=== PATIENT | male | born 1980 | race Caucasian/White ===

== ENCOUNTER 2022-05-13 14:32 | Emergency (ER) | payer MEDICAID, SELFPAY ==
[2022-05-13] VITALS (11 sets, daily range): BP systolic 141–155; BP diastolic 69–101; PULSE 94–113; RESP 20; TEMP 36.4; O2SAT 89–97; BMI 37.0
--- NOTE | 2022-05-13 15:06 | CRLHL7_ITS ---
For Patients: As a result of the Century Cures Act, medical imaging exams and procedure reports are released immediately into your electronic medical record. You may view this report before your referring provider. If you have questions, please contact your health care provider. HISTORY: Shortness of breath. COMPARISON: None available FINDINGS: A portable erect AP view of the chest was obtained at 15 17 hours. The lungs are clear. No focal or diffuse infiltrates are present. The heart is normal in size. The mediastinum is normal in appearance. The osseous structures are normal in appearance for the patient`s age. IMPRESSION: Normal portable chest single view. Dictated by Didier Earl MD @ 05/13/2022 3:41:11 PM (Electronically Signed)
--- NOTE | 2022-05-13 15:08 | ED_ITS ---
HPI - General Adult General Time Seen by Provider: 15:08 Date Seen: 05/13/22 Chief complaint: Shortness of Breath/Dyspnea Stated complaint: low O2, shortness of breath Time Seen by Provider: 05/13/22 15:00 Source: patient Mode of arrival: ambulatory Limitations: no limitations History of Present Illness HPI narrative: Patient is a pleasant 41 white male smoker who has a history of asthma that is been longstanding has not really been bothered for the last 20 years or so but over the last year he has had more flares of asthma specially with colds or other allergens. 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 He has worked with his primary and he has been on albuterol inhaler as well as fluconazole also takes losartan and chlorthalidone. He has had no leg swelling no immobilization. This symptoms started over the last 3 days when he had upper respiratory type symptoms and congestion nasal running and that seems little better today but his breathing has worsened last night his breathing was worse he has been wheezing. And has had a cough nonproductive Related Data Home Medications Medication Instructions Recorded Confirmed albuterol sulfate 90 mcg/actuation 1 puff inhalation Q4H PRN 05/13/22 05/13/22 aerosol inhaler (Ventolin HFA) fluticasone propionate 110 2 inh inhalation DAILY 05/13/22 05/13/22 mcg/actuation HFA aerosol inhaler (Flovent HFA) losartan 100 mg tablet 100 mg PO DAILY 05/13/22 05/13/22 Previous Rx's Medication Instructions Recorded chlorthalidone 25 mg tablet 25 mg PO QDAY #90 tabs 03/02/22 prednisone 20 mg tablet 20 mg PO BID #10 tabs 05/13/22 Allergies Allergy/AdvReac Type Severity Reaction Status Date / Time naproxen [From Aleve] Allergy Verified 05/13/22 14:45 Review of Systems Status of ROS: Reports: 6 or more systems reviewed and unremarkable except as noted in History and below FORMERLY [facility], [facility] PFS Social History Smoking Status: Current every day smoker What tobacco products do you use: cigarettes Smoking packs per day: 0.25 Smoking cigarettes per day: 5.0 Do you use any of these nicotine containing products: None Second hand tobacco smoke exposure: No How often do you have a drink containing alcohol: 2-4 times a month How many standard drinks containing alcohol do you have on a typical day: 1 or 2 AUDIT-C Alcohol total score: 2 Non-prescribed substance use: denies use Exam Narrative: Exam Narrative: Objective: Vital signs show elevated blood pressure pulse elevated 113 respiratory rate 20 and unlabored temp temp is 97.5? O2 sat is 89% on room air Triple swab is sent HEENT is unremarkable Neck is supple Chest is audible wheezing and auscultate of wheezing in the mid to low lung lisa, no rales Heart rhythm regular heart murmur Extremities are no edema neurologic nonfocal good peripheral perfusion noted Const: Vital Signs, click to edit/add: Vital Signs - 24 hr 05/13/22 14:41 05/13/22 15:25 05/13/22 14:48 Temperature 97.5 F L Pulse Rate 105 H Pulse Rate [Pulse Oximeter] 113 H Respiratory Rate 20 Blood Pressure Blood Pressure [Le ft Upper Arm] 150/101 H Pulse Oximetry 89 97 96 Oxygen Delivery Me thod Room Air Nasal Cannula Oxygen Flow Rate 2 05/13/22 15:00 05/13/22 15:02 05/13/22 15:30 Temperature Pulse Rate 99 103 H 101 H Pulse Rate [Pulse Oximeter] Respiratory Rate Blood Pressure 141/80 H Blood Pressure [Le ft Upper Arm] Pulse Oximetry 96 95 96 Oxygen Delivery Me thod Oxygen Flow Rate 05/13/22 15:31 05/13/22 14:48 05/13/22 16:02 Temperature Pulse Rate 102 H 97 Pulse Rate [Pulse Oximeter] Respiratory Rate Blood Pressure 155/70 H 143/69 H Blood Pressure [Le ft Upper Arm] Pulse Oximetry 96 92 93 Oxygen Delivery Me thod Nasal Cannula Oxygen Flow Rate 2 Course Vital Signs Vital signs: Initial Vital Signs Temperature 97.5 F L 05/13/22 14:41 Temperature Source Temporal Artery Scan 05/13/22 14:41 Pulse Rate 113 H 05/13/22 14:41 Respiratory Rate 20 05/13/22 14:41 Blood Pressure 150/101 H 05/13/22 14:41 Blood Pressure Mean 117 05/13/22 14:41 Pulse Oximetry 89 05/13/22 14:41 Oxygen Delivery Method 05/13/22 14:41 Vital Signs Temperature 97.5 F L 05/13/22 14:41 Pulse Rate 113 H 05/13/22 14:41 Respiratory Rate 20 05/13/22 14:41 Blood Pressure 150/101 H 05/13/22 14:41 Pulse Oximetry 89 05/13/22 14:41 Oxygen Delivery Method 05/13/22 14:41 Temperature 97.5 F L 05/13/22 14:41 Pulse Rate 97 05/13/22 16:02 Respiratory Rate 20 05/13/22 14:41 Blood Pressure 143/69 H 05/13/22 16:02 Pulse Oximetry 93 05/13/22 16:02 Oxygen Delivery Method 05/13/22 14:48 Oxygen Flow Rate 2 05/13/22 14:48 Medical Decision Making MDM Narrative Medical decision making narrative: 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 He has a recent upper respiratory infection now has an asthma flare-up. He has no swelling or edema, no history of clear clotting or bleeding. He will get a now be drawl and Atrovent neb here, RT has assessed him already. He will get a L of IV fluid, IV Solu-Medrol 125. Will check a heme 4 and a basic 7 and chest x-ray. Disposition pending his clinical response and lab findings. Suspicion is for an upper respiratory infection stimulating a upper respiratory infection. Strongly recommend to quit smoking as well Addendum: Patient has slightly low potassium given potassium bicarb dose 25 milk over limits. His chest x-ray looks unremarkable, he feels better, he is able to maintain his O2 sat without oxygen now after the neb. He got IV Solu- Medrol. I think could be appropriate to give him prednisone 20 mg b.i.d. x5 days, he will continue his albuterol inhaler. Engage in a high potassium diet. Recheck with primary care in the next 2 days certainly sooner return to ED problems or concerns. Strongly recommend discontinue smoking Lab Data Labs: Lab Results 05/13/22 05/13/22 05/13/22 Range/Units 14:45 15:20 15:20 WBC 12.58 H (4.50-11.00) K/uL RBC 5.29 (4.30-5.90) m/uL Hgb 15.9 (13.5-17.5) gm/dL Hct 46.1 (37.0-53.0) % MCV 87 (80-100) fL MCH 30 (26-34) pg MCHC 35 (32-36) gm/dL RDW Coeff of Nida 13.0 (11.5-15.5) % Plt Count 234 (140-440) K/uL Neut % (Auto) 70.2 (42.0-72.0) % Lymph % (Auto) 17.3 L (20-44) % [place] % (Auto) 7.1 (0.0-11.0) % Eos % (Auto) 4.0 (0.0-7.0) % Baso % (Auto) 0.5 (0.0-3.0) % Neut # (Auto) 8.80 H (1.7-7.0) K/uL Lymph # (Auto) 2.20 (0.90-2.90) K/uL [place] # (Auto) 0.90 (0.00-0.90) K/UL Eos # (Auto) 0.50 (0.00-0.50) K/uL Baso # (Auto) 0.10 (0.00-0.30) K/uL Sodium 138 (135-149) mmol/L Potassium 3.0 L (3.6-5.1) mmol/L Chloride 99 (96-114) mmol/L Carbon Dioxide 33 H (20-32) mmol/L BUN 12 (5-24) mg/dL Creatinine 0.7 (0.5-1.5) mg/dL Estimated Creat Clear 146.42 Estimated GFR 118 ml/min Glucose 148 H (60-115) mg/dL Calcium 9.3 (8.4-10.6) mg/dL C-Reactive Protein 2.8 H (0.5-1.0) mg/dL SARS-CoV-2 (PCR) Negative SARS-CoV-2 (Negative) Influenza Type A (PCR) Negative PCR FLU A (Negative) Influenza Type B (PCR) Negative PCR FLU B (Negative) RSV (PCR) Negative PCR RSV (Negative) Discharge Plan Discharge Clinical Impression: Acute upper respiratory infection, Asthma with acute exacerbation Patient Disposition: Home w/ Parent or Adult Condition: Improved Instructions: Hypokalemia (ED) Additional Instructions: Rest, stick with light activity, eat lots of high potassium foods such as fruits vegetables green leafy vegetables (see handout on other potassium-rich foods). Follow-up with primary care in the next couple of days, continue albuterol inhaler as needed and steroid inhaler. Take Prednisone 20 mg twice a day for 5 days. Push fluids to stay well hydrated, we recommend to stop smoking. Activity Level: Light activity Discharge Diet: Regular Prescriptions: New prednisone 20 mg tablet 20 mg PO BID Qty: 10 0RF No Action albuterol sulfate [Ventolin HFA] 90 mcg/actuation HFA aerosol inhaler 1 puff inhalation Q4H PRN fluticasone propionate [Flovent HFA] 110 mcg/actuation HFA aerosol inhaler 2 inh inhalation DAILY losartan 100 mg tablet 100 mg PO DAILY chlorthalidone 25 mg tablet 25 mg PO QDAY Qty: 90 0RF Follow Up/Referrals: Oniel Branch MD [Primary Care Provider] - Stand Alone Forms: [employer] Info Instructions
[2022-05-13] MEDS: IPRAT-ALBUT 0.5-2.5 MG/3 ML NEB 1 NEB IH (15:10)
[2022-05-13] MEDS: METHYLPREDNISOLONE SOD SUCC 62.5 MG/ML (125) 125 MG IVP (15:30)
[2022-05-13] MEDS: 0.9 % SODIUM CHLORIDE 1000 ml 1,000 ML IV (15:30)
[2022-05-13 15:38] LABS: Basophils Percent Auto 0.5 % (0.0-3.0); Hematocrit 46.1 % (37.0-53.0); Hemoglobin* 15.9 gm/dL (13.5-17.5); Immature Granulocytes Pct Auto 0.9 %; Lymphocytes Percent Auto 17.3 % (20-44); Mean Corpuscular HGB Conc 35 gm/dL (32-36); Mean Corpuscular Hemoglobin 30 pg (26-34); Mean Corpuscular Volume 87 fL (80-100); Monocytes Percent Auto 7.1 % (0.0-11.0); Neutrophils Percent Auto 70.2 % (42.0-72.0); Platelet Count* 234 K/uL (140-440); Red Blood Count 5.29 m/uL (4.30-5.90); White Blood Count* 12.58 K/uL (4.50-11.00)
[2022-05-13 15:45] LABS: Slide Review Reflex No
[2022-05-13 15:55] LABS: Chloride* 99 mmol/L (96-114); Sodium* 138 mmol/L (135-149)
[2022-05-13 15:57] LABS: PCR FLU A Negative PCR FLU A (Negative); PCR FLU B Negative PCR FLU B (Negative); PCR RSV Negative PCR RSV (Negative)
[2022-05-13 15:58] LABS: SARS PCR* Negative SARS-CoV-2 (Negative)
[2022-05-13 15:58] LABS: Blood Urea Nitrogen* 12 mg/dL (5-24); Carbon Dioxide* 33 mmol/L (20-32); Creatinine* 0.7 mg/dL (0.5-1.5); Est. Creatinine Clearance* 146.42; Estimated Glomerular Filt Rate 118 ml/min
[2022-05-13 15:59] LABS: Calcium* 9.3 mg/dL (8.4-10.6); Glucose* 148 mg/dL (60-115)
[2022-05-13 16:01] LABS: C Reactive Protein* 2.8 mg/dL (0.5-1.0)
[2022-05-13] MEDS: POTASSIUM BICARB 25 MEQ EFFERVESCENT TAB PO (16:21)
--- NOTE | 2022-05-13 16:39 | ED.NURSE ---
Pt tolerated Potassium well. VSS on RA. Sats 93-97% on RA for >45 minutes prior to discharge.
== END 2022-05-13 16:38 | disposition home or self-care (01) ==
PROVIDERS: Emergency Provider Family Medicine; PCP Family Medicine
DX: J45.901 Unspecified asthma with (acute) exacerbation (principal); J06.9 Acute upper respiratory infection, unspecified
CPT/HCPCS: 36415; 71045; 80048; 85025; 86140; 87502; 87634; 87635; 94640; 94761; 96374; 99284; A9270; J2930; J7030

== ENCOUNTER 2022-10-24 09:42 | Outpatient (CLI) | payer MEDICAID, SELFPAY ==
--- NOTE | 2022-10-24 09:45 | CRLHL7_ITS ---
For Patients: As a result of the Century Cures Act, medical imaging exams and procedure reports are released immediately into your electronic medical record. You may view this report before your referring provider. If you have questions, please contact your health care provider. INDICATION: Palpable area left mandibular area. TECHNIQUE: Directed soft tissue ultrasound of the left kyra mandibular soft tissues without a radiologist present. FINDINGS: There is a hypoechoic slightly lobulated 2.6 x 1.5 x 2.0 cm fairly well defined mass without increased blood flow either within or just adjacent to the left parotid gland. The appearance is entirely nonspecific. A primary intra parotid neoplasm is suspect. A lymph node is considered unlikely given the lack of blood flow. This does not appear to reflect a normal lymph node. CT may be helpful for further characterization. IMPRESSION: 2.6 x 1.5 x 2.0 cm hypoechoic slightly lobulated mass likely within or perhaps just adjacent to the left parotid gland. Further imaging evaluation should be based on clinical grounds. CT may be helpful. Dictated by Dominic Peck MD @ 10/26/2022 10:44:39 AM (Electronically Signed)
== END 2022-10-24 09:43 | disposition home or self-care (01) ==
LOC: US 09:43
PROVIDERS: PCP Family Medicine; Visit Provider Otolaryngology
DX: R22.0 Localized swelling, mass and lump, head (principal)
CPT/HCPCS: 76536

== ENCOUNTER 2022-11-08 14:47 | Outpatient (CLI) | payer MEDICAID, SELFPAY ==
--- NOTE | 2022-11-08 15:00 | CRLHL7_ITS ---
For Patients: As a result of the Century Cures Act, medical imaging exams and procedure reports are released immediately into your electronic medical record. You may view this report before your referring provider. If you have questions, please contact your health care provider. INDICATION: Swelling, palpable abnormality. TECHNIQUE: CT of the neck from the skull base to the thoracic inlet following administration of 133 cc iodinated intravenous contrast. COMPARISON: Correlated with ultrasound dated 10/24/2022. FINDINGS: A focal ulceration is noted over the cutaneous and subcutaneous tissues of the left posterior upper cheek (series 4, image 38). A focus of nodular enhancement with internal cystic/necrotic change is noted within the inferior superficial left parotid gland and measures approximately 2.0 x 2.0 x 2.4 cm (series 6, image 8). Inferior to this, within the same facundo drainage pathway, prominent left IIa lymph nodes measure up to 11 millimeters (series 6, image 9) and 14 millimeters (series 6, image 16) with internal hyperdensity suggestive of necrosis. Mildly prominent left level III lymph nodes measure up to 11 millimeters (series 3, image 48) and 9 millimeters (series 3, image 50). A cluster of mildly prominent left medial supraclavicular lymph node is also noted (series 3, image 71). Normal appearance of the aerodigestive structures. Specifically, no mass or abnormal mucusal-based enhancement. Normal submandibular glands. Unremarkable thyroid gland. The lung apices are clear. No suspicious osseous lesion is identified. IMPRESSION: 1. Focal ulceration involving the cutaneous and subcutaneous soft tissues of the posterior left upper cheek (series 4, image 38) just anterior to and below the level of the temporomandibular joint. 2. Nodular enhancing 2.4 cm lesion in the superficial left parotid with cystic/necrotic changes likely representing a grossly enlarged lymph node. 3. Prominent left level IIa, level III, and medial supraclavicular nodes, including a centrally necrotic left level IIa node. 4. While a primary infectious etiology or parotid lesion remains in the differential diagnosis, given distribution and presence of cystic adenopathy, the possibility of cutaneous squamous carcinoma with regional lymphatic spread should be excluded. Findings were discussed with Dr. Lopez on 11/08/22. Please note that all CT scans at this facility use dose modulation, iterative reconstruction, and/or weight-based dosing when appropriate to reduce radiation dose to as low as reasonably achievable. Dictated by Josh Kaufman MD @ 11/08/2022 5:11:37 PM (Electronically Signed)
== END 2022-11-08 14:48 | disposition home or self-care (01) ==
LOC: CT 14:47
PROVIDERS: PCP Family Medicine; Visit Provider Otolaryngology
DX: K11.8 Other diseases of salivary glands (principal); L98.499 Non-pressure chronic ulcer of skin of other sites with unspecified severity; R59.0 Localized enlarged lymph nodes
CPT/HCPCS: 70491; Q9967

== ENCOUNTER 2022-11-23 11:13 | Outpatient (CLI) | payer MEDICAID, SELFPAY ==
--- NOTE | 2022-11-23 11:15 | CRLHL7_ITS ---
For Patients: As a result of the Century Cures Act, medical imaging exams and procedure reports are released immediately into your electronic medical record. You may view this report before your referring provider. If you have questions, please contact your health care provider. ULTRASOUND-GUIDED CORE NEEDLE BIOPSY OF LEFT PAROTID MASS. CLINICAL HISTORY: Left parotid mass. COMPARISON STUDIES: CT 11/08/2022, ultrasound 10/24/2022 TECHNIQUE: Real-time ultrasound with image documentation was used for targeting the left parotid lesion. Core biopsy specimens were obtained using a Written device with a 14-gauge biopsy needle. CONSENT and TIME OUT: The procedure, risks, and alternatives were explained to the patient and a consent was signed. Julian Protocol was followed including pre-procedure verification that relevant information/documentation was available, reviewed and properly matched to the patient; consent accurate and complete; and equipment and supplies available. Time Out was conducted just prior to starting procedure to verify the four required elements: patient identity, correct side/site marked (if applicable), procedure, relevant images/results properly labeled and displayed (if applicable). PROCEDURE: The patient was positioned supine on the ultrasound table. The left cheek was prepped with ChloraPrep. 6 cc of 1 percent lidocaine was used for local anesthesia. Core samples were obtained. The specimens were placed in 10% formalin and sent to the pathology department. Pressure was held on the biopsy site until all bleeding subsided. LATERALITY: Left parotid gland LESION: Solid hypoechoic intra parotid mass measuring 2.6 x 0.6 x 2.2 cm SUSPICION FOR MALIGNANCY: Medium NUMBER OF SAMPLES: 5 IMPRESSION: Ultrasound-guided left parotid gland biopsy. Dictated by Kwame Lehman MD @ 11/23/2022 12:38:59 PM (Electronically Signed)
== END 2022-11-23 11:14 | disposition home or self-care (01) ==
LOC: US 11:14
PROVIDERS: PCP Family Medicine; Visit Provider Otolaryngology
DX: R59.9 Enlarged lymph nodes, unspecified (principal)
CPT/HCPCS: 38505; 76942; 88307; A4649

== ENCOUNTER 2023-11-23 08:41 | Outpatient (CLI) | payer OTHER, SELFPAY ==
--- OUTSIDE RECORDS SUMMARY | 2023-11-25 04:02 | XMS_ITS ---
Author Organization [facility] Address [address] [place] [address] Care Team Providers Care Fire Supervisor Name Role Phone Unavailable Unavailable Unavailable Surgery Details Not on file Complications Check Surgery Details section. Procedure Estimated Blood Loss Check Surgery Details section. Procedure Findings Check Surgery Details section. Procedure Specimens Taken Check Surgery Details section.
--- OUTSIDE RECORDS SUMMARY | 2023-11-25 04:02 | XMS_ITS | Referral Summary ---
Author Organization [facility] Address [address] [place] [id number] Care Team Providers Care Manager Completions Name Role Phone Unavailable Primary Care Provider Unavailabl e Source Comments Patient records contain information from all sites at [facility]. For routine questions regarding patient records, call [phone] during business hours, M-F 8:00 AM - 5:00 PM Central Time. Record requests for emergency care only can be directed to [phone] at any time.[facility] Allergies Active Allergy Reactions Criticality Noted Date Comments Albuterol Nausea Only Low 01/02/2008 Only in large doses and when nebulized. TOLERATES inhaler form of albuterol and uses frequently. Amlodipine Edema High 10/19/2022 Naproxen Hives (Reselect Reaction) High 01/02/2008 Has TOLERATED ibuprofen Medications Medication Sig Dispensed Refills Start Date End Date Status chlorthalidone (HYGROTON) 25 mg tablet Take 25 mg by mouth daily. 07/25/2022 Active losartan (COZAAR) 100 mg tablet Take 100 mg by mouth daily. 12/03/2022 Active albuterol 90 mcg/actuation inhaler Inhale 2 puffs every 6 (six) hours as needed for shortness of breath or wheezing. 09/14/2022 Active fluticasone propionate (FLOVENT HFA) 110 mcg/actuation inhaler Inhale 1 puff 2 (two) times a day. 07/25/2022 Active oxyCODONE (ROXICODONE) 5 mg immediate release tabletIndications:Ac [facility] [employer] [place] Pain Exception Take 1 tablet (5 mg total) by mouth every 4 (four) hours as needed for pain Indication: Acute Pain Exception. 5 tablet 12/11/2022 Active Active Problems Problem Noted Date Diagnosed Date Hypertension Essential Primary 12/11/2022 Obstructive Sleep Apnea Adult 12/11/2022 Asthma NOS 12/11/2022 Alcohol Mild Use Disorder (Abuse) Uncomplicated 12/11/2022 Other Diseases Of Salivary Glands 11/29/2022 Social History Tobacco Use Types Packs/Day Years Used Date Smoking Tobacco: Every Day Cigarettes Smokeless Tobacco: Current Chew Tobacco Cessation:Ready to Q uit: Not Asked; Counseling Given: Not Answered Comments:Down to 1 cigarette/day, working on quitting Alcohol Use Standard Drinks/Week Comments Yes 15 (1 standard drink = 0.6 oz pu re alcohol) Overall Financial Resource Strain (CARDIA) Answe r Date Recorded How hard is it for you to pa y for the very basics like food, housing, medical care, and heating? Not very hard 12/27/2022 Exercise Vital Sign Answer Date Recorde d On average, how many days pe r week do you engage in moderate to strenuous exercise (like a brisk walk)? 1 day 12/27/2022 On average, how many minutes do you engage in exercise at this level? 30 min 12/27/2022 Hunger Vital Sign Answer Date Recorded Within the past 12 months, y ou worried that your food would run out before you got the money to buy more. Never true 12/28/19 Within the past 12 months, t he food you bought just didn't last and you didn't have money to get more. Never true 12/27/2022 PRAPARE - Transportation Answer Date Re corded In the past 12 months, has l ack of transportation kept you from medical appointments or from getting medications? No 12/04 In the past 12 months, has l ack of transportation kept you from meetings, work, or from getting things needed for daily living? No 12/27/2022 Nutrition Answer Date Recorded Nutrition: EVOO Fat Source Unknown 12/27 On average, how many serving s of fruits and vegetables do you eat per day (serving size is equal to 1 cup or approximately the size of a tennis ball)? 3-5 12/27/2022 Dental Answer Date Recorded Dental: Regular Dentist No 12/28/19 Employment Answer Date Recorded Employment status Employed and actively working without restrictions 12/27/2022 Housing Stability Answer Date Recorded What is your living situation today? I have a [employer] place to live 12/27/2022 Sex and Gender Information Value Date Recorded Sex Assigned at Male 12/27/2022 3:42 PM CDT Gender Identity Male 12/27/2022 3:42 PM CDT Sexual Orientation Straight 12/27/2022 3: 42 PM CDT Job Start Date Occupation Industry Not on file Not on file Not on file Last Filed Vital Signs Vital Sign Reading Time Taken Comments Blood Pressure 95/58 12/11/2022 4:45 PM CDT Pulse 101 12/11/2022 5:35 PM CDT Temperature 37 ??C (98.6 ??F) 12/11/2022 5:35 PM CDT Respiratory Rate 17 12/11/2022 4:50 PM CDT Oxygen Saturation 94% 12/11/2022 5:35 PM CDT Inhaled Oxygen Concentration - - Weight 123 kg (270 lb 15.1 oz) 12/11/2022 11:05 AM CDT Height 180.3 cm (5' 11) 12/11/2022 11:05 AM CDT Body Mass Index 37.79 12/11/2022 11:05 AM CDT Plan of Treatment Not on file Medical Devices Implanted Type Area Punchboard Assembler Device Identifier Shelf Expiration Date Model / Serial / Lot Clp Apr Lgs Intnl 9.0 - [id number] Implanted:Qty: 1 on 12/11/2022 by Annette Ashley M.D. at [facility] Hardware e.g. pins/screws/ rods Left: Neck Ethicon [id number] / / Procedures Procedure Name Priority Date/Time Associated Diagnosis Comments BASIC METABOLIC PANEL, S/P Routine 11/29/2022 5:26 PM CDT Other Diseases Of Salivary Glands Preoperative Exam from Last 3 Months or Most Recently Relevant to Health Maintenance Results * (ABNORMAL) Basic Metabolic Panel (11/29/2022 5:26 PM CDT) Potassium, S 3.4(L) 3.6 - 5.2 mmol/L 11/29/2022 6:59 PM CDT DTL Sodium, S 135 135 - 145 mmol/L 11/29/2022 6:59 PM CDT DTL Chloride, S 94(L) 98 - 107 mmol/L 11/29/2022 6:59 PM CDT DTL Bicarbonate, S 25 22 - 29 mmol/L 11/29/2022 6:59 PM CDT DTL Anion Gap 16(H) 7 - 15 11/29/2022 6:59 PM CDT DTL BUN (Blood Urea Nitrogen), S 12 8 - 24 mg/dL 11/29/2022 6:59 PM CDT DTL Creatinine 0.77 0.74 - 1.35 mg/dL 11/29/2022 6:59 PM CDT DTL Estimated GFR (eGFR) >90 >=60 mL/min/BSA 11/29/2022 6:59 PM CDT DTL Comment: Estimated GFR calculated using the 2020 CKD_EPI creatinine equation. Calcium, Total, S 9.7 8.6 - 10.0 mg/dL 11/29/2022 6:59 PM CDT DTL Glucose, S 289(H) 70 - 140 mg/dL 11/29/2022 7:19 PM CDT DTL Blood (Blood, Venous) 11/29/2022 5:26 PM CDT 11/29/2022 6:44 PM CDT Annette Ashley M.D. LAB BLOOD ADD-ON [facility] [place] [address] [place] [address], [facility] [address] [place] [address] from Last 3 Months or Most Recently Relevant to Health Maintenance
--- OUTSIDE RECORDS SUMMARY | 2023-11-25 04:02 | XMS_ITS | Clinical Summary ---
Author Organization [facility] Address [address] [place] [address] Care Team Providers Care Sql Architect Name Role Phone Unavailable Primary Care Provider Unavailabl e Source Comments Patient records contain information from all sites at [facility]. For routine questions regarding patient records, call [phone] during business hours, M-F 8:00 AM - 5:00 PM Central Time. Record requests for emergency care only can be directed to [phone] at any time.[facility] Allergies Active Allergy Reactions Criticality Noted [...] oxyCODONE (ROXICODONE) 5 mg immediate release tabletIndications:Ac [place] Pain Exception Take 1 tablet (5 mg [...] your living situation today? I have a [facility] place to live 12/27/2022 Sex and Gender [...] 12/11/2022 11:05 AM CDT Plan of Treatment Health Maintenance Due Date Last Done Comments HIV Screening 1979 Hepatitis C Screening 1979 Lipid (Cholesterol) Screening 1979 Office Visit for Blood Pressure Check / Re-check 1979 Tobacco Cessation counseling 1979 Hepatitis B Vaccines (1 of 3 - 19+ 3-dose series) 10/31/1998 Asthma Action Plan 12/11/2022 Asthma Control Test Questionnaire 12/11/2022 Asthma Management/Exacerbati on Questionnaire (AMQ/AEQ) 12/11/2022 Depression Screening (Annual PHQ-2) 03/05/2023 Pneumococcal vaccine (0-64 years) (2 of 2 - PCV) 07/26/2023 07/25/2022 COVID-19 Vaccine (4 - 2023-2 5 season) 2023 02/24/2021, 06/11/2020, 05/19/2020 Creatinine Level (Kidney Function Test) 11/30/2023 11/29/2022 Potassium Level 11/30/2023 11/29/2022 Sodium Level 11/30/2023 11/29/2022 Influenza Vaccine (#1) 2023 , 03/12/2019, 12/26/2017 DTaP,Tdap,and Td Vaccines (2 - Td or Tdap) 06/05/2027 06/04/2017 HPV Vaccines Aged Out No longer eligi ble based on patient's age to complete this topic Medical Devices Implanted Type Area Hot Packer Device Identifier Shelf Expiration Date Model / Serial / Lot Clp [facility] - [id number] Implanted:Qty: 1 on 12/11/2022 by Annette Ashley M.D. at [facility] Hardware e.g. pins/screws/ rods Left: [...] CDT Annette Ashley M.D. LAB BLOOD ADD-ON [facility] [address] [place] [address], [facility] [address] [place] [address] from Last 3 Months or Most Recently Relevant to Health Maintenance
--- OUTSIDE RECORDS SUMMARY | 2023-11-25 04:02 | XMS_ITS | Clinical Summary ---
Author Organization [facility] Address [place], [place] [address] Care Team Providers Care Neon Sign Erector Name Role Phone None, Primary Care Provider Unavailabl e Allergies Active Allergy Reactions Criticality Noted Date Comments Albuterol Nausea Only 01/02/2008 Only in large doses Naproxen Hives 01/02/2008 Medications Medication Sig Dispensed Refills Start Date End Date Status HYDROcodone-acetamino phen, 5-500 mg, (VICODIN) Tab tablet 1 tablet 3 times daily if needed for Pain. 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 AHI-45 08/07/2012 Obesity, unspecified 01/02/2008 Immunizations Name Administration Dates Next Due Td (Age >=7 Years) 12/03/2005 Family History Medical History Relation Name Comments Hyperlipidemia Father Hypertension Father Cancer-breast Mother Good Health Sister 2 Relation Name Status Comments Father Alive Mother Alive Sister 1 Alive Sister 2 Social History Tobacco Use Types Packs/Day Years Used Date Smoking Tobacco: Every Day Cigarettes 0.5 10 Tobacco Cessation:Ready to Q uit: No; Counseling Given: Yes Comments:<.5 pack per day Alcohol Use Standard Drinks/Week Comments Yes 0 (1 standard drink = 0.6 oz pur e alcohol) 2 drinks a week Sex and Gender Information Value Date Recorded Sex Assigned at Not on file Gender Identity Not on file Sexual Orientation Not on file Obstetrics History Last Filed Vital Signs Vital Sign Reading Time Taken Comments Blood Pressure 146/83 12/03/2012 5:24 PM CDT Pulse 62 12/03/2012 5:24 PM CDT Temperature - - Respiratory Rate - - Oxygen Saturation - - Inhaled Oxygen Concentration - - Weight 107.5 kg (237 lb) 12/03/2012 5:24 PM CDT Height 178.4 cm (5' 10.25) 01/02/2008 1:40 PM C DT Body Mass Index 33.76 01/02/2008 1:40 PM CDT Plan of Treatment Health Maintenance Due Date Last Done Comments Tdap 10/31/1990 Depression screening for age 12+ 1991 HIV for age 15-65 10/31/1994 BMI (ht and wt on same day) for age 18+ 10/31/1997 Hepatitis C screening for ag e 18-79 10/31/1997 Lipids for age 35-44 10/31/2014 Tetanus booster 12/04/2015 12/03/2005 COVID-19 vaccine series (2022- season) 2023 Influenza for age 9-49 11/04/2023 Pneumococcal series for age 6-64 Aged Out No longer eligible based on patient's age to complete this topic Care Teams Neon Sign Erector Relationship Specialty Start Date End Date None, Dr Feliz PCP - General 12/30/05
== END 2023-11-23 08:42 | disposition home or self-care (01) ==
LOC: NFLDREF 11-25 04:01
PROVIDERS: PCP Family Medicine; Referring Provider Family Medicine; Visit Provider Family Medicine
DX: E78.5 Hyperlipidemia, unspecified (principal); I10 Essential (primary) hypertension
CPT/HCPCS: 80053; 80061

== ENCOUNTER 2023-11-28 09:20 | Outpatient (CLI) | payer OTHER, SELFPAY ==
--- OUTSIDE RECORDS SUMMARY | 2023-12-02 06:05 | XMS_ITS | Clinical Summary ---
Author Organization [facility] Address [place], [place] [address] Care Team Providers Care Muck Farmer Name Role Phone None, Primary Care Provider [...] Tetanus booster 12/04/2015 12/03/2005 COVID-19 vaccine series (2023- season) 2023 Influenza for age 9-49 11/04/2023 Pneumococcal series for age 6-64 Aged Out No longer eligible based on patient's age to complete this topic Care Teams Muck Farmer Relationship Specialty Start Date End Date None, Dr Feliz PCP - General 12/30/05
--- OUTSIDE RECORDS SUMMARY | 2023-12-02 06:05 | XMS_ITS ---
Author Organization [facility] Address [address] [place] [address] Care Team Providers Care Merchandise Collector Name Role Phone Unavailable Unavailable Unavailable Surgery Details Not on file Complications Check Surgery Details section. Procedure Estimated Blood Loss Check Surgery Details section. Procedure Findings Check Surgery Details section. Procedure Specimens Taken Check Surgery Details section.
--- OUTSIDE RECORDS SUMMARY | 2023-12-02 06:05 | XMS_ITS | Referral Summary ---
Author Organization [facility] Address [address] [place] [id number] Care Team Providers Care Concrete Buster Operator Name Role Phone Unavailable Primary Care Provider Unavailabl e Source Comments Patient records contain information from all sites at [facility]. For routine questions regarding patient records, call [phone] during business hours, M-F 8:00 AM - 5:00 PM Central Time. Record requests for emergency care only can be directed to [phone] at any time.[facility] Allergies Active Allergy Reactions Criticality Noted Date [...] oxyCODONE (ROXICODONE) 5 mg immediate release tabletIndications:Ac [place] Pain Exception Take 1 tablet (5 mg [...] your living situation today? I have a [facility] place to live 12/27/2022 Sex and [...] on file Medical Devices Implanted Type Area Dermatology Teacher Device Identifier Shelf Expiration Date Model / Serial / Lot Clp Apr Lgs Intnl 9.0 - [id number] Implanted:Qty: 1 on 12/11/2022 by Annette Ashley M.D. at [facility] Hardware e.g. pins/screws/ rods Left: Neck Ethicon [...] CDT Annette Ashley M.D. LAB BLOOD ADD-ON [facility] [address] [place] [address], [facility] [address] [place] [address] from Last 3 Months or Most Recently Relevant to Health Maintenance
--- OUTSIDE RECORDS SUMMARY | 2023-12-02 06:05 | XMS_ITS | Clinical Summary ---
Author Organization [facility] Address [address] [place] [address] Care Team Providers Care Emergency Room Clinician Name Role Phone Unavailable Primary Care Provider Unavailabl e Source Comments Patient records contain information from all sites at [facility]. For routine questions regarding patient records, call [phone] during business hours, M-F 8:00 AM - 5:00 PM Central Time. Record requests for emergency care only can be directed to [phone] at any time.[facility] Allergies Active Allergy Reactions Criticality [...] oxyCODONE (ROXICODONE) 5 mg immediate release tabletIndications:Ac [place] Pain Exception Take 1 tablet (5 mg [...] your living situation today? I have a [facility] place to live 12/27/2022 Sex and [...] this topic Medical Devices Implanted Type Area Window Decorator Device Identifier Shelf Expiration Date Model / Serial / Lot Clp [facility] - [id number] Implanted:Qty: 1 on 12/11/2022 by Annette Ashley M.D. at [facility] Hardware e.g. pins/screws/ rods Left: Neck [...] CDT Annette Ashley M.D. LAB BLOOD ADD-ON [facility] [address] [place] [address], [facility] [address] [place] [address] from Last 3 Months or Most Recently Relevant to Health Maintenance
== END 2023-11-28 09:21 | disposition home or self-care (01) ==
LOC: NFLDREF 12-02 06:03
PROVIDERS: PCP Family Medicine; Referring Provider Family Medicine; Visit Provider Family Medicine
DX: E87.6 Hypokalemia (principal); R73.01 Impaired fasting glucose
CPT/HCPCS: 82947; 84132

== ENCOUNTER 2024-03-14 08:05 | Outpatient (CLI) | payer BC, SELFPAY | END 2024-03-14 08:06 | disposition home or self-care (01) | LOC: NFLDREF 03-22 16:44 | PROVIDERS: PCP Family Medicine; Referring Provider Family Medicine; Visit Provider Family Medicine | DX: E11.9 Type 2 diabetes mellitus without complications (principal); E87.6 Hypokalemia; E78.5 Hyperlipidemia, unspecified | CPT/HCPCS: 80053; 80061 ==

== ENCOUNTER 2024-06-16 11:31 | Outpatient (CLI) | payer BC, SELFPAY | END 2024-06-16 11:32 | disposition home or self-care (01) | LOC: NFLDREF 06-19 05:31 | PROVIDERS: PCP Family Medicine; Referring Provider Family Medicine; Visit Provider Family Medicine | DX: E87.6 Hypokalemia (principal); E11.65 Type 2 diabetes mellitus with hyperglycemia; R79.89 Other specified abnormal findings of blood chemistry; Z79.84 Long term (current) use of oral hypoglycemic drugs | CPT/HCPCS: 80048; 84450; 84460 ==

== ENCOUNTER 2024-12-19 08:15 | Outpatient (CLI) | payer BC, SELFPAY | END 2024-12-19 08:16 | disposition home or self-care (01) | LOC: NFLDREF 12-25 12:24 | PROVIDERS: PCP Family Medicine; Referring Provider Family Medicine; Visit Provider Family Medicine | DX: E78.5 Hyperlipidemia, unspecified (principal); E11.9 Type 2 diabetes mellitus without complications | CPT/HCPCS: 80053; 82043; 82570 ==

== ENCOUNTER 2025-01-19 07:31 | Outpatient (CLI) | payer BC, SELFPAY ==
--- NOTE | 2025-01-19 09:27 | P.ANES_ITS ---
Anesthesia Charges Start Date/Time Anesthesia Start Date: 01/19/25 Anesthesia Start Time: 08:28 Stop Date/Time Anesthesia Stop Date: 01/19/25 Anesthesia Stop Time: 09:25 Coding CPT Codes CPT Codes: FLASH LWR INTST NDSC NOS - 87056 ([id number]) P2 - PATIENT W/MILD SYST DISEASE, QK - FRAME COVERER 2-4 CNCRNT ANES PROC, QX - RUSSIAN LANGUAGE PROFESSOR SVC W/ MD MED DIRECTION
--- NOTE | 2025-01-19 09:27 | W.ANESCHARGE ---
Anesthesia Charges Start Date/Time Anesthesia Start Date: 01/19/25 Anesthesia Start Time: 08:28 Stop Date/Time Anesthesia Stop Date: 01/19/25 Anesthesia Stop Time: 09:25 Coding CPT Codes CPT Codes: FLASH LWR INTST NDSC NOS - 30216 ([id number]) P2 - PATIENT W/MILD SYST DISEASE, QK - INVESTMENT ADVISOR 2-4 CNCRNT ANES PROC, QX - MASTER TAX ADVISOR SVC W/ MD MED DIRECTION
--- NOTE | 2025-01-19 13:02 | P.ANES_ITS ---
Anesthesia Charges Start Date/Time Anesthesia Start Date: 01/19/25 Anesthesia Start Time: 08:28 Stop Date/Time Anesthesia Stop Date: 01/19/25 Anesthesia Stop Time: 09:25 Coding CPT Codes CPT Codes: ANES LWR INTST NDSC NOS - 37291 ([id number]) QX - CORPORATE BOND TRADER SVC W/ MD MED DIRECTION, QK - TRANSPORT AIDE 2-4 CNCRNT ANES PROC, P2 - PATIENT W/MILD SYST DISEASE
--- NOTE | 2025-01-19 13:02 | W.ANESCHARGE ---
Anesthesia Charges Start Date/Time Anesthesia Start Date: 01/19/25 Anesthesia Start Time: 08:28 Stop Date/Time Anesthesia Stop Date: 01/19/25 Anesthesia Stop Time: 09:25 Coding CPT Codes CPT Codes: ANES LWR INTST NDSC NOS - 85616 ([id number]) QX - ENVIRONMENTAL ENGINEERING INTERN SVC W/ MD MED DIRECTION, QK - OCCUPATIONAL REHABILITATION AIDE 2-4 CNCRNT ANES PROC, P2 - PATIENT W/MILD SYST DISEASE
== END 2025-01-19 07:32 | disposition home or self-care (01) ==
LOC: OP CLINIC 07:31
PROVIDERS: PCP Family Medicine; Visit Provider Surgery
DX: Z12.11 Encounter for screening for malignant neoplasm of colon (principal); D12.3 Benign neoplasm of transverse colon; D12.8 Benign neoplasm of rectum
CPT/HCPCS: 00811; 00812; 45385; J2704